=== PATIENT | female | born 1990 | race Caucasian/White ===

== ENCOUNTER 2016-06-13 00:34 | Emergency (ER) | payer BC, MEDICAID ==
--- NOTE | 2016-06-13 00:46 | EDM.PDOC ---
ED HPI GENERAL MEDICAL PROBLEM - General Chief Complaint: Drug or Alcohol Abuse Stated Complaint: INTOXICATED Time Seen by Provider: 06/13/16 00:35 Source of Information: Reports: Patient History Limitations: Reports: No limitations - History of Present Illness INITIAL COMMENTS - FREE TEXT/NARRATIVE: Pt claims that for the past 2 days she has been very upset and she started to drink Vodka. She has drunk 1/5 litre of Vodka today, and she vomited twice small amounts of clear fluid. Her boy friend and father asked her to call 911 and hence she called 911 and asked for ambulance. She did take ativan before she came into emergency room. Pt says she got fired from her work 10 days ago. She did continue to take disulfuram after she lost her job. but 2 days ago she quit taking it and as she was depressed and upset about her situation, started to drink. She claims that she has had issues with alcohol for past 10 years. But in the past 1 year that she has moved up to [place] , it has got worse. She claims she does not have many friends and feels lonely and hence started to drink more. Presently she is alert, awake and coherent, slightly euphoric. No vomiting in the emergency room. - Related Data Allergies Allergy/AdvReac Type Severity Reaction Status Date / Time Cats Allergy Wheezing Uncoded 04/13/16 19:47 Home Meds: Home Meds Dextroamphetamine/Amphetamine [Dextroamp-Amphetamin 10 mg Tab] 10 mg PO BID [History] Past Medical History Psychiatric History: Reports: ADHD Other Psychiatric History: patient currently takes adderall bid Hematologic History: Reports: None - Past Surgical History HEENT Surgical History: Reports: LASIK, Oral surgery Social & Family History - Family History Cardiac: Reports: Hypertension, Other (see below) Other Cardiac Family History: brother valve defect Endocrine/Metabolic: Reports: Diabetes, type II, Hypothyroidism - Tobacco Use Smoking Status *Q: Current Every Day Smoker Years of Tobacco use: 10 Packs/Tins Daily: 1 Second Hand Smoke Exposure: Yes - Caffeine Use Caffeine Use: Reports: Soda - Alcohol Use Days Per Week of Alcohol Use: 7 Number of Drinks Per Day: 10 Total Drinks Per Week: 70 - Recreational Drug Use Recreational Drug Use: Yes Drug Use in Last 12 Months: Yes Recreational Drug Type: Reports: Marijuana/Hashish Recreational Drug Use Frequency: Socially ED ROS GENERAL - Review of Systems Review Of Systems: See Below Constitutional: Denies: fever, chills, fatigue, diaphoresis HEENT: Denies: Contact Lenses, Rhinitis, Sinus problem, Throat pain Respiratory: Denies: Shortness of Breath, Cough, Sputum Cardiovascular: Denies: Chest pain, Lightheadedness GI/Abdominal: Denies: Abdominal pain, Nausea, Vomiting : Denies: dysuria, frequency Musculoskeletal: Denies: joint pain, joint swelling Skin: Denies: pruritis, rash Neurological: Denies: Confusion, Dizziness, Headache, Gait Disturbance Psychiatric: Reports: Anxiety. Denies: Agitation, Confusion, Hallucinations, Homicidal ideation, Suicidal ideation ED EXAM, GENERAL - Physical Exam Exam: See Below Exam Limited By: Other (etoh smell in her breath) General Appearance: alert, WD/WN, no apparent distress, other (euphoric but coherent) Eye Exam: bilateral eye: EOMI, PERRL Ears: normal external exam, normal canal, hearing grossly normal, normal TMs Nose: normal inspection, normal mucosa, no blood Throat/Mouth: Normal inspection, Normal lips, Normal teeth, Normal gums, Normal oropharynx, Normal voice, No airway compromise Head: atraumatic, normocephalic Neck: normal inspection, supple, non-tender, full range of motion Respiratory/Chest: no respiratory distress, lungs clear, normal breath sounds, no accessory muscle use, chest non-tender Cardiovascular: normal peripheral pulses, regular rate, rhythm, no edema, no gallop, no JVD, no murmur, no rub GI/Abdominal: normal bowel sounds, soft, non tender, no organomegaly, no distention, no abnormal bruit, no mass Neurological: alert, oriented, CN II-XII intact, normal cognition, normal gait, normal reflexes, no motor/sensory deficits, other (No alcohol tremers, No stagerring gait. Pt walks with normal gait.) Skin Exam: Warm, Intact Course - Vital Signs Text/Narrative:: Pt is slightly tachycardia in the emergency room. Appears euphoric under influence of alcohol. does cry at times when she thinks of her condition. Has not had any more episodes of vomiting. Her labs appear normal other than her AST and ALT elevation in the range consistent with alcoholic liver disease. I did discuss this with patient.Pt's ativan bottle was empty, but her disulfuram is almost full. She probably is using more ativan to prevent withdrawals and might not be taking disulfuram as needed.. Attempted 5 attempts of IV access. I did try right external jugular once and was unsuccessful. Hence wanted to try the ultrasound guided technique, when pt refused. Asked for nicotine lozenges as she claims she smokes 1 PPD. Offered nicotine patch of 21mg, she refused the patch, and got upset about it. She decided to voluntarily walk out. Pt is in her normal cognition, making this decision. Apparently patient was verbally abusive to the emergency room nursing staff.Pt did sign AMA and left the emergency room with her medications.. - Orders/Labs/Meds Labs: Laboratory Tests 06/13/16 06/13/16 06/13/16 Range/Units 00:36 00:36 00:37 WBC 7.8 D (4.0-11.0) K/uL RBC 4.89 (3.80-5.80) M/uL Hgb 16.5 D (11.5-16.5) g/dL Hct 47.0 (37.0-47.0) % MCV 96 (76-96) fL MCH 33.7 H (27.0-32.0) pg MCHC 35.1 H (31.0-35.0) g/dL RDW 12.6 (11.0-16.0) % Plt Count 119 L (150-500) K/uL MPV 11.2 H (6.0-10.0) fL Neut % (Auto) 35.1 L (45.0-70.0) % Lymph % (Auto) 53.5 H (20.0-40.0) % Bell % (Auto) 7.6 (3.0-10.0) % Eos % (Auto) 3.5 (1.0-5.0) % Baso % (Auto) 0.3 (0.0-0.5) % Neut # (Auto) 2.75 (2.00-7.50) K/uL Lymph # (Auto) 4.17 H (1.50-4.00) K/uL Bell # (Auto) 0.59 (0.20-0.80) K/uL Eos # (Auto) 0.27 (0.04-0.40) K/uL Baso # (Auto) 0.02 (0.02-0.10) K/uL Sodium 141 (136-145) mmol/L Potassium 3.5 (3.5-5.1) mmol/L Chloride 102 (98-107) mmol/L Carbon Dioxide 22.9 (21.0-32.0) mmol/L Anion Gap 19.6 H (5.0-15.0) mmol/L BUN 5 L D (8-26) mg/dL Creatinine 0.73 (0.55-1.02) mg/dL Est Cr Clr Drug Dosing TNP Estimated GFR (MDRD) > 60 (>60) MLS/MIN BUN/Creatinine Ratio 6.8 (6-25) Glucose 104 H (74-100) mg/dL Calcium 8.9 (8.5-10.1) mg/dL Total Bilirubin 0.9 D (0.0-1.0) mg/dL AST 275 H (15-37) U/L ALT 79 H (12-78) U/L Alkaline Phosphatase 63 (46-116) U/L Total Protein 8.3 H (6.4-8.2) g/dL Albumin 4.1 (3.4-5.0) g/dL Globulin 4.2 (2.2-4.2) g/dL Albumin/Globulin Ratio 1.0 (0.8-2.0) Ethyl Alcohol 451.0 H* (0.0-0.0) mg/dL Departure - Departure Time of Disposition: 01:20 Disposition: Against Medical Advice 07 Condition: fair Clinical Impression: Alcohol abuse Forms: ED Department Discharge - Problem List & Annotations (1) Alcohol abuse SNOMED Code(s): 43208047 Code(s): F10.10 - ALCOHOL ABUSE, UNCOMPLICATED Status: Acute - Problem List Review Problem List Initiated/Reviewed/Updated: Yes - Assessment/Plan Assessment:: Alcohol abuse Plan: Plan was to get IV acces and start her on IV fluids and monitor for possible withdrawals.Attempted 5 attempts of IV access by nurses. I did try right external jugular once and was unsuccessful. Hence wanted to try the ultrasound guided technique, which pt refused. Did try to reassure that she was possibly dehydrated and hence hard to get IV access. Patient asked for nicotine lozenges as she claims she smokes 1 PPD. As we do not carry lozenges in the hospital, offered nicotine patch of 21mg, she refused the patch, and got upset about it. She decided to voluntarily walk out. Pt is in her normal cognition, making this decision. Apparently patient was verbally abusive to the emergency room nursing staff.Pt did sign AMA and left the emergency room with her medications saying that she would prefer outpatient therapy.
[2016-06-13 02:27] VITALS: BP 125/60
== END 2016-06-13 01:20 | disposition left against medical advice (07) ==
LOC: LB.ED 00:34
DX: F10.10 Alcohol abuse, uncomplicated (principal); F17.210 Nicotine dependence, cigarettes, uncomplicated; Z98.890 Other specified postprocedural states; Z91.09 Other allergy status, other than to drugs and biological substances
CPT/HCPCS: 36415; 80053; 85025; 99284; A0425; A0429; G0480